=== PATIENT | female | born 1935 | race Caucasian/White ===

== ENCOUNTER 2016-05-17 17:18 | Inpatient (IN) ==
[2016-05-17] MEDS ORDERED: *HR* OxyCODONE Immed Rel 5 MG TABLET PO PRN (18:02)
--- NOTE | 2016-05-17 18:14 | Orthopedic History & Physical ---
Date of Encounter: 05/17/16 Time of Encounter: 18:04 History of Present Illness Chief complaint: Fall, Incisional Dehiscence HPI: Ms. Sheehan is a 80 year old female, presented to [facility] clinic with wound dehiscence, purulence and pain to her Right knee. She recently had a Right TKR 03/29/16 with . She had some early contact dermatitis, treated with Doxycycline for 7 days, and improvement of contact dermatitis. She was last seen 05/04/16 by in clinic, and was doing well with only a small slow healing proximal wound. She states she noticed more redness and wound opening last week. She went to urgent care in [facility] and was started on Bactrim DS BID. She had a mechanical fall on Tuesday, and she thinks this opened her incision even more. However, she is a poor historian and reported a fall as much as a month ago to the medical affairs leader. She states there has been more drainage and odor since her fall on Tuesday. She is able to walk with moderate pain, ROM is limited secondary to pain. She has not completed many PT sessions at this time. She was [facility], then d/c'ed home. She is alert and oriented, but is hearing impaired and seems to be slightly confused, her friend Ara with her states this is her usual state. She denies fever, N/V, or any additional issues. She has a history of coronary stent placement, Pacemaker - which was recently interrogated 02/2016 prior to TKR. She was scheduled for a Right ureteral stent placement with for due to blocked UPJ however, she did not have the surgery because she ate the day of surgery. Will obtain Cardiac consult, and nephrology consult. Past Med Surg Social Fam HX - Past Medical History Medical history: arthritis, COPD, coronary artery disease, diabetes, hyperlipidemia, hypertension, other Psychiatric history: no psych history - Social History Smoking Status: Former smoker Smokeless Tobacco Status: No Alcohol use: none Drug use: none - Family History Mother Living Status: Hx Family Cardiac Disorders: Yes Hx Family Endocrine Disorder: Yes Medications and Allergies Albuterol Sulfate [Proventil Hfa] 2 puff IH Q4H PRN 03/29/16 [History] Amlodipine [Norvasc] 5 mg PO DAILY 03/29/16 [History] Atorvastatin [Lipitor] 40 mg PO HS 03/29/16 [History] Budesonide/Formoterol 80/4.5 [Symbicort 80/4.5] 2 puff IH BIDR PRN 03/29/16 [ History] GlipiZIDE [Glucotrol] 5 mg PO DAILY 03/29/16 [History] Hydralazine HCl 50 mg PO BID 03/29/16 [History] Insulin Glargine,Hum.rec.anlog [Lantus Solostar] 22 unit SQ HS 03/29/16 [History ] Losartan Potassium [Cozaar] 100 mg PO DAILY 03/29/16 [History] Tiotropium [Spiriva] 18 mcg IH 0700 03/29/16 [History] Tramadol HCl [Ultram] 50 mg PO QID PRN 03/29/16 [History] Hydroxyzine HCl 25 mg PO Q8H PRN 05/11/16 [History] Meclizine HCl [Verticalm] 25 mg PO DAILY PRN 05/11/16 [History] Allergies vitamin E (d-alpha tocopherol) Adverse Reaction (Verified 05/11/16 14:32) Hives All Systems Reviewed: A 10-system review of systems was performed and is negative for pertinent findings except as documented above in the HPI. - Constitutional Constitutional: as per HPI, frequent falls, no fever(s), no headache(s), no weakness - Respiratory Respiratory: as per HPI, no cough - Musculoskeletal Musculoskeletal: abnormal gait, joint swelling, limited range of motion, muscle weakness Physical Exam - Constitutional Vitals: Pulse Resp BP Pulse Ox 68 18 170/77 97 05/17/16 17:57 05/17/16 17:57 05/17/16 17:57 05/17/16 17:57 - Knee right Appearance: effusion, other (erythema along incision with multiple areas of wound dehicence, obvious purulence from incision; odororous) Varus alignment in stance: No Valgus alignment in stance: No Tenderness with palpation knee: anterior, medial, lateral Pain: throughout ROM Gait: limping ROM: extension knee: Limited ROM: flexion knee: Limited Strength: extension knee: Limited Strength: flexion: Limited Results - Labs Labs: All other labs normal.
[2016-05-17 18:38] LABS: Basophils # 0.1 K/mcL (0.0-0.2); Basophils % 1.1 %; Eosinophils # 0.2 K/mcL (0.0-0.6); Eosinophils % 2.3 %; Hematocrit 35.4 % (35.3-44.9); Hemoglobin 11.2 g/dL (11.5-15.4); Immature Granulocytes % 0.9 % (0-4); Lymphocytes % 22.5 %; Mean Corpuscular HGB Conc 31.6 g/dL (31.6-35.5); Mean Corpuscular Hemoglobin 25.9 pg (28.0-33.3); Mean Corpuscular Volume 81.9 fL (83.0-100.0); Mean Platelet Volume 9.4 fL (9.4-12.4); Monocytes # 0.7 K/mcL (0.0-1.3); Monocytes % 7.7 %; Neutrophils # 5.9 K/mcL (1.6-8.9); Platelet Count 367 K/mcL (140-400); Red Blood Count 4.32 M/mcL (3.82-4.97); Red Cell Distribution Width 15.9 % (11.5-14.5); Segmented Neutrophils % 65.5 %
[2016-05-17 18:40] LABS: INR 1.3; Prothrombin Time 13.8 Seconds (9.4-12.1)
[2016-05-17 18:42] LABS: Activated Partial Thrombo Time 36.9 Seconds (26.0-36.0)
[2016-05-17 18:50] LABS: Albumin 3.1 g/dL (3.5-5.0); Albumin/Globulin Ratio 0.7 (1.1-2.2); Bilirubin,Total 0.2 mg/dL (0.2-1.2); Calcium 10.1 mg/dL (8.6-10.8); Globulin 4.2 g/dL (2.4-3.5); Potassium 4.7 mEq/L (3.5-4.5); Total Protein 7.3 g/dL (6.0-8.3)
[2016-05-17 19:14] LABS: Vancomycin,Peak < 0.4 mcg/mL (20-40); Vancomycin,Trough < 0.4 mcg/mL (10-20)
[2016-05-17] MEDS: Vancomycin 1,000 MG in D5% in Water 250 ML IVPB SCH (20:07)
[2016-05-17] MEDS: Ringers Solution, Lactated 500 ML IVC SCH (20:07)
[2016-05-17] MEDS ORDERED: hydrOXYzine pamoate 25 MG CAPSULE PO PRN (21:22)
[2016-05-17] MEDS: Insulin DETEMIR 100 UNIT/ML X5UNITS SQ SCH (22:47)
[2016-05-17] MEDS: hydrALAZINE 25 MG TABLET PO SCH (22:47)
[2016-05-17] MEDS: traMADol 50 MG TABLET PO PRN (23:19)
--- NOTE | 2016-05-18 06:18 | Orthopedics Progress Note ---
Date of Encounter: 05/18/16 Time of Encounter: 06:17 Subjective Interval history: Patient with infection of right knee. Openings and drainage. Plan for surgery tomorrow resection arthroplasty cement spacer. Possible 1 stage revision if infection is not intra-articular. Objective Vital signs: Vital Signs Temp Pulse Resp BP Pulse Ox 05/18/16 04:00 97.6 F 63 16 142/72 98 05/18/16 00:00 98.0 F 63 17 155/71 98 05/17/16 20:25 98.1 F 65 18 165/70 98 05/17/16 17:57 68 18 170/77 97 Intake and Output 05/17/16 05/17/16 05/18/16 15:59 23:59 07:59 Intake Total 400 / 400 Output Total 200 / 200 Balance 200 / 200 Intake: Oral 400 / 400 Output: Urine 200 / 200 Other: # Voids 1 Weight 77.2 kg Blood Glucose* 127 - Labs CBC & BMP: 05/17/16 18:23 05/17/16 18:23 Labs: Abnormal lab results Hgb 11.2 g/dL (11.5-15.4) L 05/17/16 18:23 MCV 81.9 fL (83.0-100.0) L 05/17/16 18:23 MCH 25.9 pg (28.0-33.3) L 05/17/16 18:23 RDW 15.9 % (11.5-14.5) H 05/17/16 18:23 ESR 88 mm/hr (0-15) H 05/17/16 18:23 PT 13.8 Seconds (9.4-12.1) H 05/17/16 18:23 APTT 36.9 Seconds (26.0-36.0) H 05/17/16 18:23 Potassium 4.7 mEq/L (3.5-4.5) H 05/17/16 18:23 Carbon Dioxide 18 mEq/L (19-29) L 05/17/16 18:23 BUN 36 mg/dL (7-20) H 05/17/16 18:23 Creatinine 1.27 mg/dL (0.57-1.11) H 05/17/16 18:23 Est GFR ( Amer) 49 (> 60) L 05/17/16 18:23 Est GFR (Non-Af Amer) 41 (> 60) L 05/17/16 18:23 BUN/Creatinine Ratio 28 (6-26) H 05/17/16 18:23 POC Glucose 127 (58-89) H 05/17/16 20:01 C-Reactive Protein 25 mg/L (Less than 5) H 05/17/16 18:23 Albumin 3.1 g/dL (3.5-5.0) L 05/17/16 18:23 Globulin 4.2 g/dL (2.4-3.5) H 05/17/16 18:23 Albumin/Globulin Ratio 0.7 (1.1-2.2) L 05/17/16 18:23 Vancomycin Peak < 0.4 mcg/mL (20-40) L 05/17/16 18:23 Vancomycin Trough < 0.4 mcg/mL (10-20) L 05/17/16 18:23 Consult Discharge Plan - Plan Referrals: Roberto Wharton MD [Primary Care Provider] -
[2016-05-18] MEDS: hydrALAZINE 25 MG TABLET PO SCH ×2 (08:56→21:21)
[2016-05-18] MEDS: amLODIPine 5 MG TABLET PO SCH (08:56)
[2016-05-18] MEDS: *HR* GlipiZIDE 5 MG TABLET PO SCH (08:57)
[2016-05-18] MEDS: traMADol 50 MG TABLET PO PRN ×2 (08:59→21:29)
--- NOTE | 2016-05-18 11:20 | Cardiology Consult Note ---
<Regino Horn R - Last Filed: 05/18/16 11:35> Date of Encounter: 05/18/16 Time of Encounter: 11:17 Assessment and Plan (1) Pre-operative cardiovascular examination Current Visit: Yes Status: Acute Pre-op cardiovascular risk stratification for resection arthroplasty cement spacer. Possible 1 stage revision if infection is not intra-articular. Negative stress test 02/2016. Echo 02/2016 with preserved EF. Pt denies any chest pain. Reports prior to last week she was able to climb stairs and ambulate slowly without difficulty or chest pain. Reports chronic dyspnea she relates to her COPD. Pt is acceptable intermediate risk from a cardiac standpoint to proceed with surgery. No further cardiac work-up is indicated. Cardiology is signing off. Reconsult PRN. (2) CAD (coronary artery disease) Current Visit: Yes Status: Chronic Hx of PCI approximately 10 years ago. Continue statin. Recommend ASA after surgery. 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 Negative stress test 02/2016. Qualifiers: Coronary Disease-Associated Artery/Lesion type: [place] artery [place] vs. transplanted heart: rosebud heart Associated angina: without angina Qualified Code(s): I25.10 - Atherosclerotic heart disease of rosebud coronary artery without angina pectoris (3) HTN (hypertension) Current Visit: Yes Status: Chronic Has been mildly elevated--possible secondary to pain. Adjust antihypertensives as necessary. Qualifiers: Hypertension type: essential hypertension Qualified Code(s): I10 - Essential (primary) hypertension (4) Pacemaker Current Visit: Yes Status: Chronic Last interrogated 02/2016--normal function with >5 years battery longevity. Discussion w patient/family: The assessment and plan as outlined above was discussed with the patient and/or family members who expressed understanding and agreement. All questions were answered. Thank you for involving us in the care of your patient. Please call with any questions. I will discuss all the above with Dr. Monteiro and make changes as necessary. History of Present Illness Consult date: 05/18/16 Requesting physician: Eber Manuel Consult reason: pre-op risk stratification Chief complaint: right knee pain History of present illness: Ms. Sheehan is a 80 year old female with PMH of HTN, DM, HLD, Diastolic CHF, CAD s/p PCI 10 years ago, s/p PPM for sinus node dysfunction, s/p right TKR 04/02 that presented to [facility] clinic with wound dehiscence, purulence and pain to her Right knee. She had a mechanical fall on Tuesday, and she thinks this opened her incision even more. However, she is a poor historian and reported a fall as much as a month ago to the medical research scientist. Pt denies any syncope, reports occasional dizziness/lightheadedness. She had a stress test and echo 2015 in [place]. Records reviewed--Stress test gated EF 65%, negative for ischemia. Echo EF 63%, mild valvular dysfunction, diastolic dysfunction. She denies any chest pain. She reports chronic dyspnea that she relates to COPD. She is not on home O2. Past Med Surg Social Fam HX - Past Medical History Medical history: arthritis, CHF, COPD, coronary artery disease, diabetes, hyperlipidemia, hypertension, other Psychiatric history: no psych history - Past Surgical History Surgical History: angioplasty/stent, knee replacement, pacemaker - Social History Smoking Status: Former smoker Smokeless Tobacco Status: No Alcohol use: none Drug use: none - Family History Mother Living Status: Hx Family Cardiac Disorders: Yes Hx Family Endocrine Disorder: Yes Medications and Allergies Albuterol Sulfate [Proventil Hfa] 2 puff IH Q4H PRN 03/29/16 [History] Amlodipine [Norvasc] 5 mg PO DAILY 03/29/16 [History] Atorvastatin [Lipitor] 40 mg PO HS 03/29/16 [History] Budesonide/Formoterol 80/4.5 [Symbicort 80/4.5] 2 puff IH BIDR PRN 03/29/16 [ History] GlipiZIDE [Glucotrol] 5 mg PO DAILY 03/29/16 [History] Hydralazine HCl 50 mg PO BID 03/29/16 [History] Insulin Glargine,Hum.rec.anlog [Lantus Solostar] 22 unit SQ HS 03/29/16 [History ] Losartan Potassium [Cozaar] 100 mg PO DAILY 03/29/16 [History] Tiotropium [Spiriva] 18 mcg IH 0700 03/29/16 [History] Tramadol HCl [Ultram] 50 mg PO QID PRN 03/29/16 [History] Hydroxyzine HCl 25 mg PO Q8H PRN 05/11/16 [History] Meclizine HCl [Verticalm] 25 mg PO DAILY PRN 05/11/16 [History] Tiotropium [Spiriva] IH DAILY 05/17/16 [History] Allergies vitamin E (d-alpha tocopherol) Adverse Reaction (Verified 05/11/16 14:32) Hives All Systems Review: A 10-system review of systems was performed and is negative for pertinent findings except as documented above in the HPI. - Constitutional Constitutional: frequent falls - Cardiovascular Cardiovascular: as per HPI, dyspnea on exertion, leg edema - Respiratory Respiratory: dyspnea - Musculoskeletal Musculoskeletal: arthralgias - Integumentary Integumentary: other (right knee wound) Physical Examination Vital Signs, Last 4 Hours Temp Pulse Resp BP Pulse Ox 05/18/16 10:50 98.1 F 63 18 136/62 96 Vital Signs Temp Pulse Resp BP Pulse Ox 05/18/16 10:50 98.1 F 63 18 136/62 96 05/18/16 06:17 98.5 F 69 18 153/71 96 05/18/16 04:00 97.6 F 63 16 142/72 98 05/18/16 00:00 98.0 F 63 17 155/71 98 05/17/16 20:25 98.1 F 65 18 165/70 98 05/17/16 17:57 68 18 170/77 97 Intake and Output 05/17/16 05/18/16 05/18/16 23:59 07:59 15:59 Intake Total 400 / 400 Output Total 200 / 200 Balance 200 / 200 Intake: Oral 400 / 400 Output: Urine 200 / 200 Other: # Voids 1 Weight 77.2 kg Blood Glucose* 127 54 85 General: Conversant, No Apparent Distress HEENT: Atraumatic, Normocephaly, Mucus Membranes Moist Neck: No JVD, Normal carotid pulses Cardiac: Reg Rate and Rhythm, Normal S1 and S2, No Murmur Lungs: Normal Breath Sounds, No Wheeze, Rales, Rhonchi Neuro: Alert and responsive, No focal deficits noted Abdomen: Soft, Non-Tender Skin: Other (right knee wound with drainage) Musculoskeletal: No Chest Wall Tenderness Extremities: Other (mild BLE edema, worse on right) Results 05/17/16 18:23 05/17/16 18:23 Lab Results 05/17/16 05/17/16 05/17/16 18:23 18:23 18:23 WBC 9.0 Hgb 11.2 L Hct 35.4 Plt Count 367 INR 1.3 APTT 36.9 H Sodium 136 Potassium 4.7 H Chloride 107 Carbon Dioxide 18 L BUN 36 H Creatinine 1.27 H Glucose 73 Calcium 10.1 Total Bilirubin 0.2 AST 16 ALT 12 Alkaline Phosphatase 89 Short CBC 05/17/16 Range/Units 18:23 WBC 9.0 (4.3-11.1) K/mcL Hgb 11.2 L (11.5-15.4) g/dL Hct 35.4 (35.3-44.9) % Plt Count 367 (140-400) K/mcL Neutrophils # 5.9 (1.6-8.9) K/mcL BMP 05/17/16 Range/Units 18:23 Sodium 136 (136-145) mEq/L Potassium 4.7 H (3.5-4.5) mEq/L Chloride 107 (98-109) mEq/L Carbon Dioxide 18 L (19-29) mEq/L BUN 36 H (7-20) mg/dL Creatinine 1.27 H (0.57-1.11) mg/dL Glucose 73 (70-99) mg/dL Calcium 10.1 (8.6-10.8) mg/dL Liver Function 05/17/16 Range/Units 18:23 Total Bilirubin 0.2 (0.2-1.2) mg/dL AST 16 (5-34) Units/L ALT 12 (0-55) Units/L Alkaline Phosphatase 89 (38-126) Units/L Albumin 3.1 L (3.5-5.0) g/dL Impressions Knee X-Ray 05/17/16 17:57 IMPRESSION: 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 D/ / Quintin Lock MD / Quintni Lock MD Interpreting Provider: Quintin Lock MD Active Medications Amlodipine Besylate (Norvasc) 5 mg PO DAILY TOBY PRN Reason: Protocol Stop: 11/17/16 09:01 Last Admin: 05/18/16 08:56 Dose: 5 mg Atorvastatin Calcium (Lipitor) 40 mg PO HS TOBY Stop: 11/16/16 21:31 Last Admin: 05/17/16 22:47 Dose: 40 mg Glipizide (Glucotrol) 5 mg PO 0800 [facility] Stop: 11/17/16 08:01 Last Admin: 05/18/16 08:57 Dose: 5 mg Hydralazine HCl (Hydralazine) 50 mg PO BID [facility] Stop: 11/16/16 21:31 Last Admin: 05/18/16 08:56 Dose: 50 mg Hydroxyzine Pamoate (Hydroxyzine Pamoate) 25 mg PO TID PRN PRN Reason: Itching Stop: 11/17/16 09:01 Vancomycin HCl 1,000 mg/ (Dextrose) 250 mls @ 167 mls/hr IVPB Q24H TOBY PRN Reason: Protocol Stop: 11/16/16 19:01 Last Admin: 05/17/16 20:07 Dose: 167 mls/hr Lactated Ringer's (Lactated Ringers) 500 mls @ 75 mls/hr IVC .Q6H40M [facility] Stop: 11/16/16 18:31 Last Admin: 05/17/16 20:07 Dose: 75 mls/hr Insulin Detemir (Levemir) 22 unit SQ HS [facility] Stop: 11/16/16 21:31 Last Admin: 05/17/16 22:47 Dose: 22 unit Losartan Potassium (Cozaar) 100 mg PO DAILY [facility] PRN Reason: Protocol Stop: 11/17/16 09:01 Last Admin: 05/18/16 08:56 Dose: 100 mg Meclizine HCl (Antivert) 25 mg PO DAILY PRN PRN Reason: DIZZINESS Stop: 11/17/16 09:01 Oxycodone HCl (Roxicodone) 5 mg PO Q6HR PRN PRN Reason: Pain Stop: 11/16/16 18:03 Tiotropium [place] (Spiriva) 18 mcg IH DAILYR [facility] PRN Reason: Protocol Stop: 11/17/16 10:01 Tramadol HCl (Ultram) 50 mg PO QID PRN PRN Reason: Pain Stop: 11/16/16 23:09 Last Admin: 05/18/16 08:59 Dose: 50 mg - Imaging and Cardiology Stress Test: report reviewed (02/2016 perfusion imaging negative for ischemia gated EF 65%.) Echo: report reviewed (02/2016 EF 63%, diastolic dysfunction, mild valvular dysfunction) - EKG Interpretation EKG results cardiology: personally reviewed (02/2016 paced), other (12 hour tele AVG HR 63, SR, no significant pauses or arrhythmias, intermittently paced) Consult Discharge Plan - Plan Referrals: Roberto Wharton MD [Primary Care Provider] - <Regis Monteiro - Last Filed: 05/18/16 11:46> Date of Encounter: 05/18/16 Assessment and Plan Discussion w patient/family: The assessment and plan as outlined above was discussed with the patient and/or family members who expressed understanding and agreement. All questions were answered. Thank you for involving us in the care of your patient. Please call with any questions. History of Present Illness History of present illness: Ms. Sheehan is a 80 year old female All Systems Review: A 10-system review of systems was performed and is negative for pertinent findings except as documented above in the HPI. Physical Examination Vital Signs, Last 4 Hours Temp Pulse Resp BP Pulse Ox 05/18/16 10:50 98.1 F 63 18 136/62 96 Results 05/17/16 18:23 05/17/16 18:23 Lab Results 05/17/16 05/17/16 05/17/16 18:23 18:23 18:23 WBC 9.0 Hgb 11.2 L Hct 35.4 Plt Count 367 INR 1.3 APTT 36.9 H Sodium 136 Potassium 4.7 H Chloride 107 Carbon Dioxide 18 L BUN 36 H Creatinine 1.27 H Glucose 73 Calcium 10.1 Total Bilirubin 0.2 AST 16 ALT 12 Alkaline Phosphatase 89 - Attending Attestation For this encounter, I have reviewed the HOME APPLIANCE TECHNICIAN or PA documentation, treatment plan, and medical decision making; and I have had face to face time with this patient. \\ Asked to see for per op clearance for knee surgery Hx of stent 10 years ago, also a dual chamber pacer PT denies any cp , sob, no pnd cough VSS JVD: 6 cm CHest: clear to auscultation , percussion CVS: RRR , no murmur , gallops or rubs EKG: no acute changes , reviewed by me Ok for surgery from a CV standpoint start ASA when feasible post op Will see as needed Thanks
[2016-05-18] MEDS: Tiotropium 18 MCG inhalation IH SCH (11:45)
[2016-05-18] MEDS ORDERED: Lidocaine -MPF 1% 5 ML AMPUL INFILT ONE (15:59)
--- NOTE | 2016-05-18 18:18 | Anesthesia Evaluation PreOp ---
Date of Encounter: 05/18/16 Time of Encounter: 18:00 - Past History Planned Operation: Rt Revision TKA Cardiac History: [place] (PCI 10 years ago), HTN, Hyperlipidemia, Arrhythmia, Pacemaker/ICD (Pacemaker last interrogated ) Pulmonary History: COPD SENIOR PROJECT ACCOUNTANT History: Denies Any Significant HX Other Medical History: Renal (CKD), Diabetes Type II Anesthesia History: No Prior Anesthetic Complications (Rt TKA under GA and Fem Block) Alcohol Use: none Drug use: none Medications and Allergies Albuterol Sulfate [Proventil Hfa] 2 puff IH Q4H PRN 03/29/16 [History] Amlodipine [Norvasc] 5 mg PO DAILY 03/29/16 [History] Atorvastatin [Lipitor] 40 mg PO HS 03/29/16 [History] Budesonide/Formoterol 80/4.5 [Symbicort 80/4.5] 2 puff IH BIDR PRN 03/29/16 [ History] GlipiZIDE [Glucotrol] 5 mg PO DAILY 03/29/16 [History] Hydralazine HCl 50 mg PO BID 03/29/16 [History] Insulin Glargine,Hum.rec.anlog [Lantus Solostar] 22 unit SQ HS 03/29/16 [History ] Losartan Potassium [Cozaar] 100 mg PO DAILY 03/29/16 [History] Tramadol HCl [Ultram] 50 mg PO QID PRN 03/29/16 [History] Hydroxyzine HCl 25 mg PO Q8H PRN 05/11/16 [History] Meclizine HCl [Verticalm] 25 mg PO DAILY PRN 05/11/16 [History] Tiotropium [Spiriva] 1 cap IH DAILY 05/17/16 [History] Cholecalciferol (Vitamin D3) [Vitamin D] 2,000 unit PO DAILY 05/18/16 [History] Desoximetasone [Topicort] 1 appl TP BID 05/18/16 [History] Diclofenac Sodium [Voltaren] 1 appl TP TID 05/18/16 [History] Oxycodone HCl [Oxaydo] 5 mg PO Q6H PRN 05/18/16 [History] Allergies vitamin E (d-alpha tocopherol) Adverse Reaction (Verified 05/11/16 14:32) Hives - Meds/Allergy Pre-op Review Medications Reviewed: Yes Allergies Reviewed: Yes Beta Blockers on Current Med List: No Anesthesia Results - Labs 05/17/16 18:23 05/17/16 18:23 Laboratory Tests 05/17/16 05/17/16 18:23 18:23 Hgb 11.2 L Hct 35.4 Plt Count 367 Sodium 136 Potassium 4.7 H BUN 36 H Creatinine 1.27 H - Imaging EKG: report reviewed (Electronic Atrial Pacemaker) Additional studies: Negative Stress Test ECHO preserved EF per Cardiology consult Anesthesia Exam O2 Sat Height 1.5 m Weight 77.2 kg O2 Sat by Pulse Oximetry 95 O2 Sat by Pulse Oximetry 96 O2 Sat by Pulse Oximetry 96 O2 Sat by Pulse Oximetry 98 O2 Sat by Pulse Oximetry 98 O2 Sat by Pulse Oximetry 98 Vital Signs Pulse Resp BP Pulse Ox 68 18 170/77 97 05/17/16 17:57 05/17/16 17:57 05/17/16 17:57 05/17/16 17:57 Height: 4'11 Weight: 170 lbs Pain Scale: 2 - HEENT Pupil (Motor): Pupils equal, EOMI Mallampati: III Teeth: Edentulous Oral Opening: Less than or equal to 3 - SENIOR PROJECT ACCOUNTANT LOC: Oriented SENIOR PROJECT ACCOUNTANT Motor: Normal RUE, Normal LUE, Normal RLE, Normal LLE, Normal Face SENIOR PROJECT ACCOUNTANT Sensory: Normal: RUE, LUE, RLE, LLE, Face - Cardiac Rhythm: Regular Murmur: None JVD: No Carotid Bruit: No - Pulmonary Breath Sounds: bilateral Clear Respiratory Effort: Symmetrical Anesthesia Assess/Plan ASA Score: 4 (HTN, CAD, Arrhythmia with Pacemaker, COPD, DM) Modified [place] Scale for Level of Consciousness: Cooperative, oriented, and tranquil Anesthetic Plan: General, Regional Monitoring Plan: Standard Monitors Recovery Plan: PACU (Discussed GA and RA, agrees to proceed)
[2016-05-18] MEDS: Vancomycin 1,000 MG in D5% in Water 250 ML IVPB SCH (18:43)
[2016-05-18] MEDS: Insulin DETEMIR 100 UNIT/ML X5UNITS SQ SCH (21:21)
[2016-05-18] MEDS: Zinc Sulfate 220 MG CAPSULE PO SCH (21:21)
[2016-05-18] MEDS: Ascorbic Acid 500 MG TABLET PO SCH (21:21)
[2016-05-19] MEDS: Ringers Solution, Lactated 500 ML IVC SCH (04:51)
--- NOTE | 2016-05-19 08:42 | Orthopedics Progress Note ---
Date of Encounter: 05/19/16 Time of Encounter: 08:41 Subjective Interval history: Seen this morning plastic surgery today discussed risks benefits as well as recovery discussed as well as a review of planned procedure. All questions answered. Objective Vital signs: Vital Signs Temp Pulse Resp BP Pulse Ox 05/19/16 06:47 98.7 F 68 16 134/68 94 L 05/19/16 04:00 98.5 F 60 17 136/71 92 L 05/19/16 00:00 98.7 F 64 16 130/74 92 L 05/18/16 20:00 98.6 F 64 18 130/71 93 L 05/18/16 14:54 98.2 F 60 18 132/51 95 05/18/16 10:50 98.1 F 63 18 136/62 96 Intake and Output 05/18/16 05/19/16 05/19/16 23:59 07:59 15:59 Intake Total 550 / 550 0 / 0 Output Total 680 / 680 1075 / 1075 Balance -130 / -130 -1075 / -1075 Intake: IV Fluids 250 / 250 Vancocin 1,000 MG In 250 / 250 Dextrose 5% 250 ML @ 167 mls/hr IVPB Q24H [facility] Rx#: [id number] Oral 300 / 300 0 / 0 Output: Urine 680 / 680 1075 / 1075 Other: Stool Size Moderate Stool Consistency formed Stool Characteristics Normal for Patient Stool Color Brown # Voids 1 # Bowel Movements 1 Blood Glucose* 231 88 - Labs CBC & BMP: 05/17/16 18:23 05/17/16 18:23 Labs: Abnormal lab results Hgb 11.2 g/dL (11.5-15.4) L 05/17/16 18:23 MCV 81.9 fL (83.0-100.0) L 05/17/16 18:23 MCH 25.9 pg (28.0-33.3) L 05/17/16 18:23 RDW 15.9 % (11.5-14.5) H 05/17/16 18:23 ESR 88 mm/hr (0-15) H 05/17/16 18:23 PT 13.8 Seconds (9.4-12.1) H 05/17/16 18:23 APTT 36.9 Seconds (26.0-36.0) H 05/17/16 18:23 Potassium 4.7 mEq/L (3.5-4.5) H 05/17/16 18:23 Carbon Dioxide 18 mEq/L (19-29) L 05/17/16 18:23 BUN 36 mg/dL (7-20) H 05/17/16 18:23 Creatinine 1.27 mg/dL (0.57-1.11) H 05/17/16 18:23 Est GFR ( Amer) 49 (> 60) L 05/17/16 18:23 Est GFR (Non-Af Amer) 41 (> 60) L 05/17/16 18:23 BUN/Creatinine Ratio 28 (6-26) H 05/17/16 18:23 POC Glucose 231 (58-89) H 05/18/16 19:50 C-Reactive Protein 25 mg/L (Less than 5) H 05/17/16 18:23 Albumin 3.1 g/dL (3.5-5.0) L 05/17/16 18:23 Globulin 4.2 g/dL (2.4-3.5) H 05/17/16 18:23 Albumin/Globulin Ratio 0.7 (1.1-2.2) L 05/17/16 18:23 Vancomycin Peak < 0.4 mcg/mL (20-40) L 05/17/16 18:23 Vancomycin Trough < 0.4 mcg/mL (10-20) L 05/17/16 18:23 Consult Discharge Plan - Plan Referrals: Roberto Wharton MD [Primary Care Provider] -
[2016-05-19] MEDS ORDERED: Multivit/Ca/Min/Fe/FA 1 TAB TABLET PO SCH (09:00)
[2016-05-19] MEDS ORDERED: Aminoglycoside Consult 1 EACH MC ONE (09:18)
[2016-05-19] MEDS: *HR* GlipiZIDE 5 MG TABLET PO SCH (09:19)
[2016-05-19] MEDS: hydrALAZINE 25 MG TABLET PO SCH ×2 (09:24→20:16)
[2016-05-19] MEDS: amLODIPine 5 MG TABLET PO SCH (09:24)
[2016-05-19] MEDS: Zinc Sulfate 220 MG CAPSULE PO SCH ×2 (09:24→20:16)
[2016-05-19] MEDS: Ascorbic Acid 500 MG TABLET PO SCH ×2 (09:25→20:16)
[2016-05-19] MEDS: traMADol 50 MG TABLET PO PRN (09:30)
[2016-05-19] MEDS: Tiotropium 18 MCG inhalation IH SCH (10:56)
--- NOTE | 2016-05-19 11:30 | Nephrology Consult Note ---
<Swetha Bowen - Last Filed: 05/19/16 15:35> Date of Encounter: 05/19/16 Time of Encounter: 11:30 Assessment and Plan (1) Chronic kidney disease (CKD), stage III (moderate) Status: Chronic Patient with a history of chronic kidney disease stage III and follows with Dr. Pena in the outpatient setting. Serum creatinine on admission very close to baseline at 1.27, now improved to 0.98. Uric acid, CK, urinalysis, urine creatinine, and urine sodium pending. Continue to renally dose vancomycin per pharmacy and avoid other nephrotoxic agents if possible. Patient appears relatively euvolemic at this time, monitor volume status after surgery. (2) Joint infection Status: Acute History of Present Illness - Reason for Consult Consult date: 05/19/16 Chronic Kidney Disease Requesting physician: Lilliam Li - Chief Complaint CKD - History of Present Illness Ms. 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 Patient follows with Dr. Pena for stage III chronic kidney disease and nephrology was consulted for inpatient management. On admission patient's serum creatinine was 1.27 with a GFR of 41. Currently, serum creatinine 0.98. Patient had a mechanical fall on Tuesday which may have opened her right knee wound. Patient is to be taken to the OR today with orthopedic surgery for a resection and possible one stage revision. Patient states that she is feeling well today. She has no current complaints or concerns. She states she was scheduled to have a stent placed with Dr. Alarcon several weeks ago but this was rescheduled due to her eating prior to her procedure. Past Med Surg Social Fam HX - Past Medical History Medical history: arthritis, CHF, COPD, coronary artery disease, diabetes, hyperlipidemia, hypertension, renal disease Psychiatric history: no psych history - Past Surgical History Surgical History: angioplasty/stent, knee replacement, pacemaker - Social History Smoking Status: Former smoker Smokeless Tobacco Status: No Alcohol use: none Drug use: none - Family History Mother Living Status: Hx Family Cardiac Disorders: Yes Hx Family Endocrine Disorder: Yes Medications and Allergies Albuterol Sulfate [Proventil Hfa] 2 puff IH Q4H PRN 03/29/16 [History] Amlodipine [Norvasc] 5 mg PO DAILY 03/29/16 [History] Atorvastatin [Lipitor] 40 mg PO HS 03/29/16 [History] Budesonide/Formoterol 80/4.5 [Symbicort 80/4.5] 2 puff IH BIDR PRN 03/29/16 [ History] GlipiZIDE [Glucotrol] 5 mg PO DAILY 03/29/16 [History] Hydralazine HCl 50 mg PO BID 03/29/16 [History] Insulin Glargine,Hum.rec.anlog [Lantus Solostar] 22 unit SQ HS 03/29/16 [History ] Losartan Potassium [Cozaar] 100 mg PO DAILY 03/29/16 [History] Tramadol HCl [Ultram] 50 mg PO QID PRN 03/29/16 [History] Hydroxyzine HCl 25 mg PO Q8H PRN 05/11/16 [History] Meclizine HCl [Verticalm] 25 mg PO DAILY PRN 05/11/16 [History] Tiotropium [Spiriva] 1 cap IH DAILY 05/17/16 [History] Cholecalciferol (Vitamin D3) [Vitamin D] 2,000 unit PO DAILY 05/18/16 [History] Desoximetasone [Topicort] 1 appl TP BID 05/18/16 [History] Diclofenac Sodium [Voltaren] 1 appl TP TID 05/18/16 [History] CeFAZolin [Ancef] 2,000 mg IVPB Q8H 42 Days 05/21/16 [Rx] Oxycodone HCl [Oxaydo] 5 mg PO Q6H PRN #30 tablet.orl 05/21/16 [Rx] Tramadol HCl [Ultram] 50 mg PO QID PRN #20 tab 05/21/16 [Rx] Allergies vitamin E (d-alpha tocopherol) Adverse Reaction (Verified 05/11/16 14:32) Hives Review of Systems All Systems: reviewed and no additional remarkable complaints except as stated Exam - Vital Signs Vital signs: Initial Vital Signs Pulse Resp BP Pulse Ox 68 18 170/77 97 05/17/16 17:57 05/17/16 17:57 05/17/16 17:57 05/17/16 17:57 Vital Signs - Last 8 Hours Temp Pulse Resp BP Pulse Ox 05/19/16 10:57 97.9 F 65 16 125/69 97 05/19/16 06:47 98.7 F 68 16 134/68 94 L 05/19/16 04:00 98.5 F 60 17 136/71 92 L Intake and Output 05/18/16 05/19/16 05/19/16 23:59 07:59 15:59 Intake Total 550 / 550 0 / 0 Output Total 680 / 680 1075 / 1075 Balance -130 / -130 -1075 / -1075 Intake: IV Fluids 250 / 250 Vancocin 1,000 MG In 250 / 250 Dextrose 5% 250 ML @ 167 mls/hr IVPB Q24H [facility] Rx#: [id number] Oral 300 / 300 0 / 0 Output: Urine 680 / 680 1075 / 1075 Other: Stool Size Moderate Stool Consistency formed Stool Characteristics Normal for Patient Stool Color Brown # Voids 1 # Bowel Movements 1 Blood Glucose* 231 88 100 - General Appearance Exam: General: Patient is alert and in no acute distress HEENT: Normocephalic atraumatic, pupils are equal round and reactive to light and accommodation, tympanic membrane is intact, nares is patent, mucous membranes moist, throat is not injected, no JVD, trachea is midline Cardiovascular: Regular rate and rhythm without murmur Respiratory: Lungs are clear to auscultation bilaterally, no wheezing, rhonchi, rales Abdomen: Soft, nontender, nondistended, positive bowel sounds in all 4 quadrants Extremities: Warm, dry, trace lower extremity edema, right knee with erythema along the incision/wound dehiscence Neuro: A&Ox3, speech is appropriate, cranial nerves II through XII are normal as tested Results - Lab Results 05/19/16 11:26 05/19/16 11:26 Most recent lab results Calcium 10.1 mg/dL (8.6-10.8) 05/17/16 18:23 Consult Discharge Plan - Plan Instructions: Cefazolin (Injection), Total Knee Replacement, Terrazzo Journeyman ( GEN) Referrals: Eber Manuel MD [Partnered Physician] - 06/16/16 5:10 pm Lilliam Li PAC [Physician Ore Puncher] - 05/28/16 11:45 am New Pena DO [Partnered Physician] - 10/01/16 1:45 pm Roberto Wharton MD [Primary Care Provider] - 08/02/16 10:30 am Sae Alarcon MD [Partnered Physician] - 05/28/16 1:45 pm Prescriptions: CeFAZolin [Ancef] 2,000 mg IVPB Q8H 42 Days Oxycodone HCl [Oxaydo] 5 mg PO Q6H PRN #30 tablet.orl PRN Reason: Pain Tramadol HCl [Ultram] 50 mg PO QID PRN #20 tab PRN Reason: Pain <Thalia Staples - Last Filed: 05/31/16 00:10> Exam - Vital Signs Vital signs: Initial Vital Signs Pulse Resp BP Pulse Ox 68 18 170/77 97 05/17/16 17:57 05/17/16 17:57 05/17/16 17:57 05/17/16 17:57 Results - Lab Results 05/21/16 07:00 05/19/16 11:26 Most recent lab results Calcium 9.7 mg/dL (8.6-10.8) 05/19/16 11:26 Urine Creatinine 46 mg/dL 05/20/16 02:18 Urine Sodium 89.0 mEq/L 05/20/16 02:18 - Attending Attestation I examined this patient and my medical decision-making was reviewed with the LAMP WIRER/PA/Advanced Practice Nurse/Resident Physician. I agree with the documented findings, disposition and treatment plan as described except to the extent set forth below. Pt seen and examined admitted by the ortho team for surgical revision of R knee due to infection requiring iv abx. Renal consulted to help in management of her established stage 3 CKD given risk for MARYBETH. Will initiate brief workup and follow along.
[2016-05-19 11:38] LABS: Basophils # 0.1 K/mcL (0.0-0.2); Basophils % 0.7 %; Eosinophils # 0.3 K/mcL (0.0-0.6); Eosinophils % 3.6 %; Hematocrit 33.6 % (35.3-44.9); Hemoglobin 10.7 g/dL (11.5-15.4); Lymphocytes # 2.4 K/mcL (0.6-4.6); Mean Corpuscular HGB Conc 31.8 g/dL (31.6-35.5); Mean Corpuscular Volume 81.8 fL (83.0-100.0); Monocytes # 0.7 K/mcL (0.0-1.3); Monocytes % 7.6 %; Neutrophils # 5.7 K/mcL (1.6-8.9); Platelet Count 335 K/mcL (140-400); Red Blood Count 4.11 M/mcL (3.82-4.97); Red Cell Distribution Width 15.9 % (11.5-14.5); Segmented Neutrophils % 61.1 %
[2016-05-19 11:52] LABS: BUN/Creatinine Ratio 29 (6-26); Blood Urea Nitrogen 28 mg/dL (7-20); Calcium 9.7 mg/dL (8.6-10.8); Carbon Dioxide 19 mEq/L (19-29); Chloride 108 mEq/L (98-109); Creatine Kinase 20 Units/L (29-168); Glucose 96 mg/dL (70-99); Osmolality,Calculated 289 (280-300); Potassium 4.5 mEq/L (3.5-4.5); Sodium 137 mEq/L (136-145); Uric Acid 5.4 mg/dL (2.6-6.0); eGFR For African Americans > 60 (> 60); eGFR For Non-African Americans 55 (> 60)
[2016-05-19] MEDS ORDERED: *HR* FentaNYL (PF) 100 MCG/2 ML VIAL ONE ×2 (13:32→14:41)
[2016-05-19] MEDS ORDERED: *HR* Midazolam HCl 2 MG/2 ML VIAL ONE (13:32)
[2016-05-19] MEDS ORDERED: Bupivacaine/Clonidine Syringe 1 EACH SYRINGE ONE (13:33)
--- NOTE | 2016-05-19 13:50 | Anesthesia Procedures ---
Date of Encounter: 05/19/16 Time of Encounter: 13:48 Procedures: Anesthesia - Nerve Block Procedure Date: 05/19/16 Time: 13:49 Allergies/Adv Reactions: Vit E Pre-op Diagnosis: r knee pain Surgical Procedure: r tka revision Checklist: Correct Patient Identifier, Correct procedure, History checked Correct side: Right Blood Thinner: No Monitor Applied: EKG, BP, Pulse Oximetry Supplemental Oxygen via Nasal Cannula (L/min): 2 Sedation: Versed (mg): 1 Indication: Post Op Analgesia (request per dr lerner) Pre-op Neuro Deficits: No Block Type: Femoral Catheter placed: No Sterile Technique: Yes Ultrasound used: Yes Anatomy identified: Yes Visual spread of Local: Yes Neuro Stimulation: No Blood on Needle Aspiration: No Smooth Injection of Local: Yes Pain with Injection of Local: No Prep: Chlorhexadine Needle: 22 x 50 mm Stimuplex Local: 0.25% Bupivicaine w/Clonidine 20 mcg/cc Volume (cc): 40 Number of Attempts: 1 Complications: None/effective block Vitals: see rn note for details
[2016-05-19] MEDS ORDERED: Lidocaine -MPF 2% 2 ML VIAL ONE (13:59)
[2016-05-19] MEDS ORDERED: *HR* Etomidate 40 MG/20 ML VIAL IVP ONE (13:59)
[2016-05-19] MEDS ORDERED: Ondansetron 4 MG/2 ML VIAL ONE (14:25)
[2016-05-19] MEDS ORDERED: Dexamethasone 4 MG/ML VIAL ONE (14:25)
[2016-05-19] MEDS ORDERED: *HR* Propofol 200 MG/20 ML VIAL IVP ONE (14:34)
[2016-05-19] MEDS ORDERED: Naloxone 0.4 MG/ML INJ IVP PRN ×2 (14:58→16:55)
[2016-05-19] MEDS ORDERED: Ondansetron 4 MG/2 ML VIAL IVP PRN ×2 (14:58→16:55)
--- NOTE | 2016-05-19 15:21 | Orthopedic Operative Note ---
Date of procedure: 05/19/16 Pre-op diagnosis: Infected right total knee Post-op diagnosis: same Procedure: Procedure: 1 stage right revision total knee Estimated blood loss: 1000 mL Hardware: Arthrex 3 femur, 2 tibia, 20 PS Pallavi 34 patella. Exam Under anesthesia: H in with multiple areas of drainage from incisionsignificant erythema around the knee. Procedural Notes: Gross pus in the subcutaneous tissue, no obvious intra- articular purulent material. Concern for communication in the area of extensor mechanism. Operative procedure: The patient was brought to the operating room and placed on the operating room table. After general anesthesia was administered the operative knee was prepped and draped in sterile surgical fashion. The patient received IV antibiotics prior to skin incision. An elliptical incision was made all around the previous incision encompassing the open areas. Incision was made through the skin and subcutaneous tissue hemostasis was obtained with cautery was purulent material in the subcutaneous tissue and extensive debridement and irrigation was performed at this time. There is a small communication between the subcutaneous tissue and intra-articular space. A medial arthrotomy was performed no gross purulent material was identified intra-articularly. Cultures were obtained at this time. The knee was brought into flexion the poly-was removed. The interface between the patient's femoral component and distal femur were disrupted with a osteotome and oscillating saw. Femoral component was removed with some central bone loss of the lateral condyle.. Attention was then turned to the tibial component. The same technique was used to remove the tibial component by disrupting the interface between the patient's tibial component and the patients proximal tibia. The tibial component was loose, was removed without significant bone loss. The patella was transected at the level between the component and the patella, it was sized to 30 for the guide was seated lug holes are drilled. The knee sat for 2 minutes with a Betadine saline solution and was irrigated out with copious amounts of normal saline. An extensive debridement was performed. Trials with the previous size were used except utilizing a 20 PS Pallavi. Trials were removed tibia cemented first followed by the femur. The #20 PS Pallavi was seated and secured the patella was cemented and held in place with patellar holding clamp. The knee sat in extension while the cement hardened. The knee sat again for 2 minutes with a Betadine saline solution. It was irrigated out with 2 L of pulse irrigation. After the cement hardened the knee was irrigated out again. The extensor mechanism was closed with a running #2 PDS suture. The deep tissue was irrigated and closed deep with #1 PDS suture superficially with 0 PDS suture. The skin was closed with skin lovely. The patient was placed in a sterile dressing and postoperative brace. They were extubated and transferred to recovery room in stable condition. Anesthesia: CONNIE Surgeon: Eber Manuel Condition: stable Disposition: PACU
[2016-05-19] MEDS: *HR* HYDROmorphone (PF) 1 MG/ML SYRINGE IVP PRN ×4 (15:32→16:04)
[2016-05-19 15:47] LABS: Hematocrit 30.1 % (35.3-44.9); Hemoglobin 9.5 g/dL (11.5-15.4)
--- NOTE | 2016-05-19 16:20 | Anesthesia Evaluation Post Op ---
Date of Encounter: 05/19/16 Time of Encounter: 16:20 - Vital Signs Vital Signs: Vital Signs/O2 Sat/Glucose, Most Current Temp Pulse Resp BP Pulse Ox 05/19/16 16:17 97.9 F 69 16 143/53 98 05/19/16 16:07 67 18 155/53 96 05/19/16 15:57 97.7 F 69 18 155/58 97 05/19/16 15:47 73 20 157/56 94 L 05/19/16 15:37 73 20 153/47 96 05/19/16 15:27 97.8 F 76 20 174/56 97 05/19/16 14:06 60 16 139/57 98 05/19/16 13:55 60 18 137/56 97 05/19/16 13:40 65 18 147/61 96 - Lungs Lungs: Clear Ascult./Percussion - Airway Airway: Non-obstructed - Cardiovascular Regular Rate - Mental Status Mental Status: Alert & Oriented, Answers Appropriately - Pain Pain Scale: 4 - Nausea Vomiting Nausea Vomiting: Not Present - Hydration Hydration: NPO - Discharge PostOp Status: Transfer Patient to floor
[2016-05-19] MEDS ORDERED: MOM Conc 10 ML UD.LIQ PO PRN (16:55)
[2016-05-19] MEDS ORDERED: Temazepam 15 MG CAPSULE PO PRN (16:55)
[2016-05-19] MEDS ORDERED: Ringers Solution, Lactated 1,000 ML IVC SCH (16:55)
[2016-05-19] MEDS ORDERED: *HR* HYDROmorphone (PF) 1 MG/ML SYRINGE IVP PRN (16:55)
[2016-05-19] MEDS ORDERED: hydrOXYzine pamoate 25 MG CAPSULE PO PRN (16:55)
[2016-05-19] MEDS ORDERED: Sennosides 8.6 MG TABLET PO PRN (16:55)
[2016-05-19] MEDS ORDERED: Ringers Solution, Lactated 500 ML IVC SCH (16:55)
[2016-05-19] MEDS ORDERED: *HR* OxyCODONE Immed Rel 5 MG TABLET PO PRN ×2 (16:55)
[2016-05-19] MEDS ORDERED: Albuterol Neb 1.25 MG/3 ML VIAL IH ONE (16:55)
[2016-05-19] MEDS: ceFAZolin 2,000 MG in D5% in Water 100 ML IVPB SCH (18:21)
[2016-05-19] MEDS: Insulin DETEMIR 100 UNIT/ML X5UNITS SQ SCH (20:17)
[2016-05-20] MEDS: ceFAZolin 2,000 MG in D5% in Water 100 ML IVPB SCH ×3 (01:45→17:13)
[2016-05-20 02:40] LABS: Bilirubin,Urine Negative (Negative); Blood,Urine Negative (Negative); Clarity,Urine Clear (Clear); Color,Urine Yellow (Yellow); Glucose,Urine (UA) 100 mg/dL (Normal); Ketones,Urine Negative (Negative); Leukocyte Esterase,Urine Negative (Negative); Nitrite,Urine Negative (Negative); PH,Urine 5.5 pH Units (5.0-8.0); Protein,Urine Negative (Neg-Trace); Specific Gravity,Urine 1.014 (1.010-1.025); Urobilinogen,Urine Normal (Normal)
--- NOTE | 2016-05-20 06:23 | Orthopedics Progress Note ---
Date of Encounter: 05/20/16 Time of Encounter: 06:23 Subjective Interval history: Patient was seen this morning doing well without complaints. Afebrile vital signs stable. Operative extremity: Neurovascularly intact Dressing clean dry and intact Calves nontender Assessment and plan: Continue with postoperative care Hematocrit 30 plan for discharge tomorrow Ancef 2 g every 86 weeks no bend of knee for 6 weeks. Objective Vital signs: Vital Signs Temp Pulse Resp BP Pulse Ox 05/20/16 05:01 98.2 F 66 17 122/56 97 05/20/16 00:00 98.1 F 64 18 136/61 95 05/19/16 19:47 98.0 F 68 12 151/59 98 05/19/16 18:26 97.2 F L 77 16 124/51 93 L 05/19/16 17:50 97.3 F L 75 18 131/54 94 L 05/19/16 17:17 97.6 F 81 16 121/57 96 05/19/16 16:40 97.6 F 69 16 140/52 98 05/19/16 16:17 97.9 F 69 16 143/53 98 05/19/16 16:07 67 18 155/53 96 05/19/16 15:57 97.7 F 69 18 155/58 97 05/19/16 15:47 73 20 157/56 94 L 05/19/16 15:37 73 20 153/47 96 05/19/16 15:27 97.8 F 76 20 174/56 97 05/19/16 14:06 60 16 139/57 98 05/19/16 13:55 60 18 137/56 97 05/19/16 13:40 65 18 147/61 96 05/19/16 10:57 97.9 F 65 16 125/69 97 05/19/16 06:47 98.7 F 68 16 134/68 94 L Intake and Output 05/19/16 05/19/16 05/20/16 15:59 23:59 07:59 Intake Total 500 / 500 Output Total 1500 / 1500 325 / 325 400 / 400 Balance -1500 / -1500 175 / 175 -400 / -400 Intake: IV Fluids 100 / 100 Ancef 2,000 MG In 100 / 100 Dextrose 5% 100 ML @ 200 mls/hr IVPB Q8HR PENDING SALE TO [facility] Rx#: [id number] Oral 400 / 400 Output: Urine 500 / 500 325 / 325 400 / 400 Estimated Blood Loss 1000 / 1000 Other: # Voids 2 1 Blood Glucose* 105 368 - Labs CBC & BMP: 05/19/16 15:41 05/19/16 11:26 Labs: Abnormal lab results Hgb 9.5 g/dL (11.5-15.4) L 05/19/16 15:41 Hct 30.1 % (35.3-44.9) L 05/19/16 15:41 MCV 81.8 fL (83.0-100.0) L 05/19/16 11:26 MCH 26.0 pg (28.0-33.3) L 05/19/16 11:26 RDW 15.9 % (11.5-14.5) H 05/19/16 11:26 MPV 9.0 fL (9.4-12.4) L 05/19/16 11:26 ESR 88 mm/hr (0-15) H 05/17/16 18:23 PT 13.8 Seconds (9.4-12.1) H 05/17/16 18:23 APTT 36.9 Seconds (26.0-36.0) H 05/17/16 18:23 BUN 28 mg/dL (7-20) H 05/19/16 11:26 Est GFR (Non-Af Amer) 55 (> 60) L 05/19/16 11:26 BUN/Creatinine Ratio 29 (6-26) H 05/19/16 11:26 POC Glucose 368 (58-89) H 05/19/16 19:35 Creatine Kinase 20 Units/L (29-168) L 05/19/16 11:26 C-Reactive Protein 25 mg/L (Less than 5) H 05/17/16 18:23 Albumin 3.1 g/dL (3.5-5.0) L 05/17/16 18:23 Globulin 4.2 g/dL (2.4-3.5) H 05/17/16 18:23 Albumin/Globulin Ratio 0.7 (1.1-2.2) L 05/17/16 18:23 Urine Glucose (UA) 100 mg/dL (Normal) H 05/20/16 02:18 Vancomycin Peak < 0.4 mcg/mL (20-40) L 05/17/16 18:23 Vancomycin Trough < 0.4 mcg/mL (10-20) L 05/17/16 18:23 - VTE Documentation of Mechanical Device: Venous foot pump, device Consult Discharge Plan - Plan Referrals: Eber Manuel MD [Partnered Physician] - 06/16/16 5:10 pm Lilliam Li, PAC [Physician Provider Education Specialist] - 05/28/16 11:45 am New Pena DO [Partnered Physician] - 10/01/16 1:45 pm Roberto Wharton MD [Primary Care Provider] - 08/02/16 10:30 am Sae Alarcon MD [Partnered Physician] - 05/28/16 1:45 pm
[2016-05-20 06:29] LABS: Hematocrit 25.9 % (35.3-44.9); Hemoglobin 8.2 g/dL (11.5-15.4)
[2016-05-20] MEDS: traMADol 50 MG TABLET PO PRN ×3 (06:58→23:29)
[2016-05-20] MEDS: *HR* GlipiZIDE 5 MG TABLET PO SCH (08:24)
[2016-05-20] MEDS: Zinc Sulfate 220 MG CAPSULE PO SCH ×2 (08:25→21:30)
[2016-05-20] MEDS: Multivit/Ca/Min/Fe/FA 1 TAB TABLET PO SCH (08:25)
[2016-05-20] MEDS: amLODIPine 5 MG TABLET PO SCH ×2 (08:27→08:28)
[2016-05-20] MEDS: hydrALAZINE 25 MG TABLET PO SCH ×2 (08:27→21:30)
[2016-05-20] MEDS: Ascorbic Acid 500 MG TABLET PO SCH ×2 (08:28→21:30)
[2016-05-20] MEDS ORDERED: 0.9 % Sodium Chloride 250 ML ONE ×2 (11:10→14:27)
[2016-05-20] MEDS: Tiotropium 18 MCG inhalation IH SCH (11:42)
[2016-05-20] MEDS: Insulin DETEMIR 100 UNIT/ML X5UNITS SQ SCH (22:31)
[2016-05-21] MEDS: ceFAZolin 2,000 MG in D5% in Water 100 ML IVPB SCH ×3 (00:37→16:57)
[2016-05-21] MEDS: traMADol 50 MG TABLET PO PRN ×3 (06:18→19:38)
--- NOTE | 2016-05-21 06:39 | Discharge Summary ---
Date of Encounter: 05/21/16 Time of Encounter: 06:36 - Discharge Diagnosis (1) Joint infection Priority: Primary Status: Acute (2) CAD (coronary artery disease) Priority: Secondary Status: Chronic Qualifiers: Coronary Disease-Associated Artery/Lesion type: [place] artery [place] vs. transplanted heart: [place] heart Associated angina: without angina Qualified Code(s): I25.10 - Atherosclerotic heart disease of [place] coronary artery without angina pectoris (3) Chronic kidney disease (CKD), stage III (moderate) Priority: Secondary Status: Chronic (4) HTN (hypertension) Priority: Secondary Status: Chronic Qualifiers: Hypertension type: essential hypertension Qualified Code(s): I10 - Essential (primary) hypertension (5) Pacemaker Priority: Secondary Status: Chronic (6) DMII (diabetes mellitus, type 2) Priority: Secondary Status: Chronic Qualifiers: Diabetes mellitus complication status: with unspecified complications Diabetes mellitus care home insulin use: unspecified care home insulin use status Qualified Code(s): E11.8 - Type 2 diabetes mellitus with unspecified complications (7) Acute blood loss anemia Priority: Primary Status: Acute - Discharge Medications Prescriptions: CeFAZolin [Ancef] 2,000 mg IVPB Q8H 42 Days Oxycodone HCl [Oxaydo] 5 mg PO Q6H PRN #30 tablet.orl PRN Reason: Pain Home Medications: Albuterol Sulfate [Proventil Hfa] 2 puff IH Q4H PRN 03/29/16 [History] Amlodipine [Norvasc] 5 mg PO DAILY 03/29/16 [History] Atorvastatin [Lipitor] 40 mg PO HS 03/29/16 [History] Budesonide/Formoterol 80/4.5 [Symbicort 80/4.5] 2 puff IH BIDR PRN 03/29/16 [ History] GlipiZIDE [Glucotrol] 5 mg PO DAILY 03/29/16 [History] Hydralazine HCl 50 mg PO BID 03/29/16 [History] Insulin Glargine,Hum.rec.anlog [Lantus Solostar] 22 unit SQ HS 03/29/16 [History ] Losartan Potassium [Cozaar] 100 mg PO DAILY 03/29/16 [History] Tramadol HCl [Ultram] 50 mg PO QID PRN 03/29/16 [History] Hydroxyzine HCl 25 mg PO Q8H PRN 05/11/16 [History] Meclizine HCl [Verticalm] 25 mg PO DAILY PRN 05/11/16 [History] Tiotropium [Spiriva] 1 cap IH DAILY 05/17/16 [History] Cholecalciferol (Vitamin D3) [Vitamin D] 2,000 unit PO DAILY 05/18/16 [History] Desoximetasone [Topicort] 1 appl TP BID 05/18/16 [History] Diclofenac Sodium [Voltaren] 1 appl TP TID 05/18/16 [History] CeFAZolin [Ancef] 2,000 mg IVPB Q8H 42 Days 05/21/16 [Rx] Oxycodone HCl [Oxaydo] 5 mg PO Q6H PRN #30 tablet.orl 05/21/16 [Rx] Allergies/Adverse Reactions: Allergies vitamin E (d-alpha tocopherol) Adverse Reaction (Verified 05/11/16 14:32) Hives Labs on day of discharge: Labs from last 24 hours 05/20/16 05/20/16 05/20/16 20:48 16:16 11:45 POC Glucose 304 H 178 H 116 H Blood Type Antibody Screen Crossmatch 05/20/16 05/20/16 08:21 07:07 POC Glucose 163 H Blood Type A POSITIVE Antibody Screen NEGATIVE Crossmatch See Detail Preliminary micro results at discharge 05/19/16 21:22 Wound Culture - Preliminary Right Knee Gram Positive Cocci 05/18/16 16:32 Blood Culture - Preliminary Peripheral Venipuncture No growth. 05/18/16 16:32 Blood Culture - Preliminary Peripheral Venipuncture No growth. - Impressions ITS Impressions Knee X-Ray 05/17/16 17:57 IMPRESSION: 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 D/ / Quintin Lock MD / Quintin Lock MD Interpreting Provider: Quintin Lock MD Knee X-Ray 05/19/16 13:51 IMPRESSION: Status post revision right total knee arthroplasty. No radiographic evidence of acute complication. D/ / 05/19/2016 16:17:05 Di Martinez MD / kacie Interpreting Provider: Di Martinez MD Date of admission: 05/17/16 17:56 Primary care physician: Edwin Carias Consults: 05/17/16 18:24 Consult to Cardiology [CONS] Routine Comment: Consulting Provider: Cardiology Evelyn Reason for Consult: Pacemaker placed 2015 Call Completed: Yes 05/19/16 16:55 Consult to Occupational Therapy [CONS] Routine Comment: Evaluate, develop and implement POC Consult to Orthopedic Navigator [CONS] [CONS] Routine Consult to Physical Therapy [CONS] Routine Comment: No knee motion Consult to Leaf Stamper [CONS] Routine Reason for SW Consult: post op joint replacement RT Post Op Consult [CONS] Routine - Patient Status Disposition: Transfer Inpatient Rehab Fac Condition: Fair Functional capacity at discharge: uses cane/walker Overall status at discharge: patient is progressing back to baseline - Discharge Instructions Follow Up With: Eber Manuel MD [Partnered Physician] - 06/16/16 5:10 pm Lilliam Li PAC [Physician Public Address Systems Mechanic] - 05/28/16 11:45 am New Pena DO [Partnered Physician] - 10/01/16 1:45 pm Roberto Wharton MD [Primary Care Provider] - 08/02/16 10:30 am Sae Alarcon MD [Partnered Physician] - 05/28/16 1:45 pm - Hospital Course Hospital course: Ms. Sheehan is a 80 year old female status post 1 stage revision for infected total knee patient with acute blood loss anemia received 2 units of blood. Discharge stable condition on IV antibiotics for 6 weeks. - Time Spent with Patient Total time spent providing and/or coordinating discharge services: - VTE Documentation of Mechanical Device: Venous foot pump, device
--- NOTE | 2016-05-21 06:41 | Orthopedics Progress Note ---
Date of Encounter: 05/21/16 Time of Encounter: 06:41 - Assessment and Plan (1) Joint infection Current Visit: Yes Status: Acute (2) CAD (coronary artery disease) Current Visit: Yes Status: Chronic Qualifiers: Coronary Disease-Associated Artery/Lesion type: [place] artery [place] vs. transplanted heart: [place] heart Associated angina: without angina Qualified Code(s): I25.10 - Atherosclerotic heart disease of [place] coronary artery without angina pectoris (3) Chronic kidney disease (CKD), stage III (moderate) Current Visit: Yes Status: Chronic (4) HTN (hypertension) Current Visit: Yes Status: Chronic Qualifiers: Hypertension type: essential hypertension Qualified Code(s): I10 - Essential (primary) hypertension (5) Pacemaker Current Visit: Yes Status: Chronic (6) DMII (diabetes mellitus, type 2) Current Visit: No Status: Chronic Qualifiers: Diabetes mellitus complication status: with unspecified complications Diabetes mellitus termite technician insulin use: unspecified termite technician insulin use status Qualified Code(s): E11.8 - Type 2 diabetes mellitus with unspecified complications (7) Acute blood loss anemia Current Visit: No Status: Acute Subjective Interval history: Patient was seen this morning doing well without complaints. Afebrile vital signs stable. Operative extremity: Neurovascularly intact Incision clean dry and intact Calves nontender Assessment and plan: Continue with postoperative care disCharge today Objective Vital signs: Vital Signs Temp Pulse Resp BP Pulse Ox 05/21/16 06:20 98.6 F 80 16 174/66 93 L 05/21/16 04:00 99.0 F 104 17 111/57 95 05/21/16 00:00 98.8 F 82 17 185/64 96 05/20/16 20:00 99.3 F 77 18 173/82 96 05/20/16 17:14 99 F 70 16 141/72 97 05/20/16 14:52 99.3 F 69 16 122/72 05/20/16 14:43 98.7 F 64 16 124/58 95 05/20/16 14:39 99.1 F 69 14 137/51 95 05/20/16 14:31 99.1 F 69 14 137/51 95 05/20/16 11:42 14 97 05/20/16 11:34 98.6 F 63 18 154/63 97 05/20/16 11:19 98.7 F 67 18 149/62 98 05/20/16 08:36 96 Intake and Output 05/20/16 05/20/16 05/21/16 15:59 23:59 07:59 Intake Total 400 / 400 800 / 800 350 / 350 Output Total 200 / 200 300 / 300 300 / 300 Balance 200 / 200 500 / 500 50 / 50 Intake: IV Fluids 100 / 100 100 / 100 Ancef 2,000 MG In 100 / 100 100 / 100 Dextrose 5% 100 ML @ 200 mls/hr IVPB Q8HR [facility] Rx#: [id number] Oral 400 / 400 350 / 350 Blood Product 300 / 300 300 / 300 Rbcs Leuko Poor As-1 300 / 300 Unit [id number] Rbcs Leuko Poor As-1 0 / 0 300 / 300 Unit [id number] Output: Urine 200 / 200 300 / 300 300 / 300 Other: # Urine Diapers 1 Blood Glucose* 116 179 - Labs CBC & BMP: 05/20/16 06:15 05/19/16 11:26 Labs: Abnormal lab results Hgb 8.2 g/dL (11.5-15.4) L 05/20/16 06:15 Hct 25.9 % (35.3-44.9) L 05/20/16 06:15 MCV 81.8 fL (83.0-100.0) L 05/19/16 11:26 MCH 26.0 pg (28.0-33.3) L 05/19/16 11:26 RDW 15.9 % (11.5-14.5) H 05/19/16 11:26 MPV 9.0 fL (9.4-12.4) L 05/19/16 11:26 ESR 88 mm/hr (0-15) H 05/17/16 18:23 PT 13.8 Seconds (9.4-12.1) H 05/17/16 18:23 APTT 36.9 Seconds (26.0-36.0) H 05/17/16 18:23 BUN 28 mg/dL (7-20) H 05/19/16 11:26 Est GFR (Non-Af Amer) 55 (> 60) L 05/19/16 11:26 BUN/Creatinine Ratio 29 (6-26) H 05/19/16 11:26 POC Glucose 304 (58-89) H 05/20/16 20:48 Creatine Kinase 20 Units/L (29-168) L 05/19/16 11:26 C-Reactive Protein 25 mg/L (Less than 5) H 05/17/16 18:23 Albumin 3.1 g/dL (3.5-5.0) L 05/17/16 18:23 Globulin 4.2 g/dL (2.4-3.5) H 05/17/16 18:23 Albumin/Globulin Ratio 0.7 (1.1-2.2) L 05/17/16 18:23 Urine Glucose (UA) 100 mg/dL (Normal) H 05/20/16 02:18 Vancomycin Peak < 0.4 mcg/mL (20-40) L 05/17/16 18:23 Vancomycin Trough < 0.4 mcg/mL (10-20) L 05/17/16 18:23 - VTE Documentation of Mechanical Device: Venous foot pump, device Consult Discharge Plan - Plan Referrals: Eber Manuel MD [Partnered Physician] - 06/16/16 5:10 pm Lilliam Li PAC [Physician Supervisor Hydrochloric Area] - 05/28/16 11:45 am New Pena DO [Partnered Physician] - 10/01/16 1:45 pm Roberto Wharton MD [Primary Care Provider] - 08/02/16 10:30 am Sae Alarcon MD [Partnered Physician] - 05/28/16 1:45 pm Prescriptions: CeFAZolin [Ancef] 2,000 mg IVPB Q8H 42 Days Oxycodone HCl [Oxaydo] 5 mg PO Q6H PRN #30 tablet.orl PRN Reason: Pain
[2016-05-21 07:28] LABS: Hemoglobin 10.1 g/dL (11.5-15.4)
[2016-05-21] MEDS: hydrALAZINE 25 MG TABLET PO SCH ×2 (09:36→19:39)
[2016-05-21] MEDS: amLODIPine 5 MG TABLET PO SCH ×2 (09:38→09:54)
[2016-05-21] MEDS: Ascorbic Acid 500 MG TABLET PO SCH ×2 (09:38→19:40)
[2016-05-21] MEDS: *HR* GlipiZIDE 5 MG TABLET PO SCH (09:38)
[2016-05-21] MEDS: Zinc Sulfate 220 MG CAPSULE PO SCH ×2 (09:38→19:39)
[2016-05-21] MEDS: Multivit/Ca/Min/Fe/FA 1 TAB TABLET PO SCH (09:38)
[2016-05-21] MEDS: Tiotropium 18 MCG inhalation IH SCH (10:26)
[2016-05-21] MEDS: Insulin DETEMIR 100 UNIT/ML X5UNITS SQ SCH (19:40)
[2016-05-22] MEDS: ceFAZolin 2,000 MG in D5% in Water 100 ML IVPB SCH ×2 (05:19→16:24)
--- NOTE | 2016-05-22 06:36 | Orthopedics Progress Note ---
Date of Encounter: 05/22/16 Time of Encounter: 06:34 - Assessment and Plan (1) Joint infection Current Visit: Yes Status: Acute (2) CAD (coronary artery disease) Current Visit: Yes Status: Chronic Qualifiers: Coronary Disease-Associated Artery/Lesion type: [place] artery [place] vs. transplanted heart: [place] heart Associated angina: without angina Qualified Code(s): I25.10 - Atherosclerotic heart disease of [place] coronary artery without angina pectoris (3) Chronic kidney disease (CKD), stage III (moderate) Current Visit: Yes Status: Chronic (4) HTN (hypertension) Current Visit: Yes Status: Chronic Qualifiers: Hypertension type: essential hypertension Qualified Code(s): I10 - Essential (primary) hypertension (5) Pacemaker Current Visit: Yes Status: Chronic (6) DMII (diabetes mellitus, type 2) Current Visit: No Status: Chronic Qualifiers: Diabetes mellitus complication status: with unspecified complications Diabetes mellitus director long term care insulin use: unspecified director long term care insulin use status Qualified Code(s): E11.8 - Type 2 diabetes mellitus with unspecified complications (7) Acute blood loss anemia Current Visit: No Status: Acute Subjective Interval history: Patient was seen this morning doing well without complaints. Afebrile vital signs stable. Operative extremity: Neurovascularly intact Incision clean dry and intact Calves nontender Assessment and plan: Continue with postoperative care Hematocrit 31 yesterday, cultures show gram-positive cocci most likely staph aureus would be consistent with preop cultures will continue on IV antibiotics for 6 weeks. Discharge held secondary to insurance patient is 100% stable and an attempt will be made to discharge again today. Objective Vital signs: Vital Signs Temp Pulse Resp BP Pulse Ox 05/22/16 06:28 98.7 F 70 20 153/73 96 05/22/16 04:32 98.3 F 73 17 132/65 95 05/22/16 00:14 99.4 F 75 16 139/56 96 05/21/16 19:36 98.8 F 77 17 147/70 95 05/21/16 15:05 98.6 F 81 16 138/59 97 05/21/16 10:26 16 98 Intake and Output 05/21/16 05/21/16 05/22/16 15:59 23:59 07:59 Intake Total 100 / 100 100 / 100 100 / 100 Output Total 150 / 150 Balance 100 / 100 100 / 100 -50 / -50 Intake: IV Fluids 100 / 100 100 / 100 100 / 100 Ancef 2,000 MG In 100 / 100 100 / 100 100 / 100 Dextrose 5% 100 ML @ 200 mls/hr IVPB Q12H [facility] Rx#: [id number] Output: Urine 150 / 150 Other: # Voids 1 # Urine Diapers 1 Blood Glucose* 120 173 - Labs CBC & BMP: 05/21/16 07:00 05/19/16 11:26 Labs: Abnormal lab results Hgb 10.1 g/dL (11.5-15.4) L D 05/21/16 07:00 Hct 31.0 % (35.3-44.9) L 05/21/16 07:00 MCV 81.8 fL (83.0-100.0) L 05/19/16 11:26 MCH 26.0 pg (28.0-33.3) L 05/19/16 11:26 RDW 15.9 % (11.5-14.5) H 05/19/16 11:26 MPV 9.0 fL (9.4-12.4) L 05/19/16 11:26 ESR 88 mm/hr (0-15) H 05/17/16 18:23 PT 13.8 Seconds (9.4-12.1) H 05/17/16 18:23 APTT 36.9 Seconds (26.0-36.0) H 05/17/16 18:23 BUN 28 mg/dL (7-20) H 05/19/16 11:26 Est GFR (Non-Af Amer) 55 (> 60) L 05/19/16 11:26 BUN/Creatinine Ratio 29 (6-26) H 05/19/16 11:26 POC Glucose 173 (58-89) H 05/21/16 19:39 Creatine Kinase 20 Units/L (29-168) L 05/19/16 11:26 C-Reactive Protein 25 mg/L (Less than 5) H 05/17/16 18:23 Albumin 3.1 g/dL (3.5-5.0) L 05/17/16 18:23 Globulin 4.2 g/dL (2.4-3.5) H 05/17/16 18:23 Albumin/Globulin Ratio 0.7 (1.1-2.2) L 05/17/16 18:23 Urine Glucose (UA) 100 mg/dL (Normal) H 05/20/16 02:18 Vancomycin Peak < 0.4 mcg/mL (20-40) L 05/17/16 18:23 Vancomycin Trough < 0.4 mcg/mL (10-20) L 05/17/16 18:23 - VTE Documentation of Mechanical Device: Venous foot pump, device Consult Discharge Plan - Plan Referrals: Eber Manuel MD [Partnered Physician] - 06/16/16 5:10 pm Lilliam Li PAC [Physician Box Icer] - 05/28/16 11:45 am New Pena DO [Partnered Physician] - 10/01/16 1:45 pm Roberto Wharton MD [Primary Care Provider] - 08/02/16 10:30 am Sae Alarcon MD [Partnered Physician] - 05/28/16 1:45 pm Prescriptions: CeFAZolin [Ancef] 2,000 mg IVPB Q8H 42 Days Oxycodone HCl [Oxaydo] 5 mg PO Q6H PRN #30 tablet.orl PRN Reason: Pain Tramadol HCl [Ultram] 50 mg PO QID PRN #20 tab PRN Reason: Pain
[2016-05-22] MEDS: amLODIPine 5 MG TABLET PO SCH ×2 (08:33→08:39)
[2016-05-22] MEDS: Multivit/Ca/Min/Fe/FA 1 TAB TABLET PO SCH (08:39)
[2016-05-22] MEDS: Ascorbic Acid 500 MG TABLET PO SCH ×2 (08:39→20:38)
[2016-05-22] MEDS: *HR* GlipiZIDE 5 MG TABLET PO SCH (08:39)
[2016-05-22] MEDS: hydrALAZINE 25 MG TABLET PO SCH ×2 (08:39→20:39)
[2016-05-22] MEDS: Zinc Sulfate 220 MG CAPSULE PO SCH ×2 (08:39→20:38)
[2016-05-22] MEDS: traMADol 50 MG TABLET PO PRN ×2 (08:42→18:20)
[2016-05-22] MEDS: Tiotropium 18 MCG inhalation IH SCH (08:49)
[2016-05-22] MEDS: Insulin DETEMIR 100 UNIT/ML X5UNITS SQ SCH (21:22)
[2016-05-23] MEDS: traMADol 50 MG TABLET PO PRN ×4 (00:24→20:27)
[2016-05-23] MEDS: ceFAZolin 2,000 MG in D5% in Water 100 ML IVPB SCH ×2 (04:51→16:41)
--- NOTE | 2016-05-23 06:38 | Orthopedics Progress Note ---
Date of Encounter: 05/23/16 Time of Encounter: 06:37 - Assessment and Plan (1) Joint infection Current Visit: Yes Status: Acute (2) CAD (coronary artery disease) Current Visit: Yes Status: Chronic Qualifiers: Coronary Disease-Associated Artery/Lesion type: [place] artery [place] vs. transplanted heart: [place] heart Associated angina: without angina Qualified Code(s): I25.10 - Atherosclerotic heart disease of [place] coronary artery without angina pectoris (3) Chronic kidney disease (CKD), stage III (moderate) Current Visit: Yes Status: Chronic (4) HTN (hypertension) Current Visit: Yes Status: Chronic Qualifiers: Hypertension type: essential hypertension Qualified Code(s): I10 - Essential (primary) hypertension (5) Pacemaker Current Visit: Yes Status: Chronic (6) DMII (diabetes mellitus, type 2) Current Visit: No Status: Chronic Qualifiers: Diabetes mellitus complication status: with unspecified complications Diabetes mellitus terminal system operator insulin use: unspecified terminal system operator insulin use status Qualified Code(s): E11.8 - Type 2 diabetes mellitus with unspecified complications (7) Acute blood loss anemia Current Visit: No Status: Acute Subjective Interval history: Patient was seen this morning doing well without complaints. Afebrile vital signs stable. Operative extremity: Neurovascularly intact Incision clean dry and intact Calves nontender Assessment and plan: Continue with postoperative care Culture positive for staph aureus susceptible to cefazolin. sHe is on appropriate antibiotics. Discharge held secondary to insurance patient is 100% stable and an attempt will be made to discharge again today. Objective Vital signs: Vital Signs Temp Pulse Resp BP Pulse Ox 05/23/16 03:19 98.1 F 62 15 146/56 94 L 05/22/16 23:53 98.3 F 71 16 147/62 97 05/22/16 19:07 98.0 F 70 15 133/59 96 05/22/16 16:11 98.4 F 73 16 144/67 96 05/22/16 11:05 98.2 F 77 16 123/68 96 05/22/16 08:53 16 98 Intake and Output 05/22/16 05/22/16 05/23/16 15:59 23:59 07:59 Intake Total 360 / 360 225 / 225 200 / 200 Output Total 350 / 350 Balance 360 / 360 -125 / -125 200 / 200 Intake: IV Fluids 100 / 100 100 / 100 Ancef 2,000 MG In 100 / 100 100 / 100 Dextrose 5% 100 ML @ 200 mls/hr IVPB Q12H [facility] Rx#: [id number] Oral 360 / 360 125 / 125 100 / 100 Output: Urine 350 / 350 Other: Meal Lunch Dinner Percent of Meal Consumed 100% 100% # Urine Diapers 1 Weight 78 kg Blood Glucose* 177 199 Patient Weight 05/23/16 23:59 Weight 78 kg - Labs CBC & BMP: 05/21/16 07:00 05/19/16 11:26 Labs: Abnormal lab results Hgb 10.1 g/dL (11.5-15.4) L D 05/21/16 07:00 Hct 31.0 % (35.3-44.9) L 05/21/16 07:00 MCV 81.8 fL (83.0-100.0) L 05/19/16 11:26 MCH 26.0 pg (28.0-33.3) L 05/19/16 11:26 RDW 15.9 % (11.5-14.5) H 05/19/16 11:26 MPV 9.0 fL (9.4-12.4) L 05/19/16 11:26 ESR 88 mm/hr (0-15) H 05/17/16 18:23 PT 13.8 Seconds (9.4-12.1) H 05/17/16 18:23 APTT 36.9 Seconds (26.0-36.0) H 05/17/16 18:23 BUN 28 mg/dL (7-20) H 05/19/16 11:26 Est GFR (Non-Af Amer) 55 (> 60) L 05/19/16 11:26 BUN/Creatinine Ratio 29 (6-26) H 05/19/16 11:26 POC Glucose 199 (58-89) H 05/22/16 20:12 Creatine Kinase 20 Units/L (29-168) L 05/19/16 11:26 C-Reactive Protein 25 mg/L (Less than 5) H 05/17/16 18:23 Albumin 3.1 g/dL (3.5-5.0) L 05/17/16 18:23 Globulin 4.2 g/dL (2.4-3.5) H 05/17/16 18:23 Albumin/Globulin Ratio 0.7 (1.1-2.2) L 05/17/16 18:23 Urine Glucose (UA) 100 mg/dL (Normal) H 05/20/16 02:18 Vancomycin Peak < 0.4 mcg/mL (20-40) L 05/17/16 18:23 Vancomycin Trough < 0.4 mcg/mL (10-20) L 05/17/16 18:23 - VTE Documentation of Mechanical Device: Venous foot pump, device Consult Discharge Plan - Plan Referrals: Eber Manuel MD [Partnered Physician] - 06/16/16 5:10 pm Lilliam Li PAC [Physician Leasing Sales Consultant] - 05/28/16 11:45 am New Pena DO [Partnered Physician] - 10/01/16 1:45 pm Roberto Wharton MD [Primary Care Provider] - 08/02/16 10:30 am Sae Alarcon MD [Partnered Physician] - 05/28/16 1:45 pm Prescriptions: CeFAZolin [Ancef] 2,000 mg IVPB Q8H 42 Days Oxycodone HCl [Oxaydo] 5 mg PO Q6H PRN #30 tablet.orl PRN Reason: Pain Tramadol HCl [Ultram] 50 mg PO QID PRN #20 tab PRN Reason: Pain
[2016-05-23] MEDS: Tiotropium 18 MCG inhalation IH SCH ×2 (08:25→11:18)
[2016-05-23] MEDS: Ascorbic Acid 500 MG TABLET PO SCH ×2 (08:42→20:30)
[2016-05-23] MEDS: Multivit/Ca/Min/Fe/FA 1 TAB TABLET PO SCH (08:42)
[2016-05-23] MEDS: *HR* GlipiZIDE 5 MG TABLET PO SCH (08:43)
[2016-05-23] MEDS: amLODIPine 5 MG TABLET PO SCH ×2 (08:43→08:45)
[2016-05-23] MEDS: hydrALAZINE 25 MG TABLET PO SCH ×2 (08:44→20:27)
[2016-05-23] MEDS: Zinc Sulfate 220 MG CAPSULE PO SCH ×2 (08:44→20:27)
[2016-05-23] MEDS: Insulin DETEMIR 100 UNIT/ML X5UNITS SQ SCH (20:41)
[2016-05-24] MEDS: ceFAZolin 2,000 MG in D5% in Water 100 ML IVPB SCH ×2 (05:02→16:02)
[2016-05-24] MEDS: traMADol 50 MG TABLET PO PRN ×3 (05:12→21:00)
--- NOTE | 2016-05-24 06:32 | Orthopedics Progress Note ---
Date of Encounter: 05/24/16 Time of Encounter: 06:32 - Assessment and Plan (1) Joint infection Current Visit: Yes Status: Acute (2) CAD (coronary artery disease) Current Visit: Yes Status: Chronic Qualifiers: Coronary Disease-Associated Artery/Lesion type: [place] artery [place] vs. transplanted heart: [place] heart Associated angina: without angina Qualified Code(s): I25.10 - Atherosclerotic heart disease of [place] coronary artery without angina pectoris (3) Chronic kidney disease (CKD), stage III (moderate) Current Visit: Yes Status: Chronic (4) HTN (hypertension) Current Visit: Yes Status: Chronic Qualifiers: Hypertension type: essential hypertension Qualified Code(s): I10 - Essential (primary) hypertension (5) Pacemaker Current Visit: Yes Status: Chronic (6) DMII (diabetes mellitus, type 2) Current Visit: No Status: Chronic Qualifiers: Diabetes mellitus complication status: with unspecified complications Diabetes mellitus ferry terminal agent insulin use: unspecified retirement insulin use status Qualified Code(s): E11.8 - Type 2 diabetes mellitus with unspecified complications (7) Acute blood loss anemia Current Visit: No Status: Acute Subjective Interval history: Patient was seen this morning doing well without complaints. Afebrile vital signs stable. Operative extremity: Neurovascularly intact Incision clean dry and intact Calves nontender Assessment and plan: Continue with postoperative care Discharge held secondary to insurance patient is 100% stable and an attempt will be made to discharge again today. Objective Vital signs: Vital Signs Temp Pulse Resp BP Pulse Ox 05/23/16 19:00 97.7 F 71 18 120/54 94 L 05/23/16 15:04 97.6 F 72 16 143/65 96 05/23/16 11:20 16 98 05/23/16 10:51 97.5 F L 77 16 146/65 94 L 05/23/16 07:03 98.0 F 64 17 154/54 94 L Intake and Output 05/23/16 05/23/16 05/24/16 15:59 23:59 07:59 Intake Total 240 / 240 620 / 620 370 / 370 Balance 240 / 240 620 / 620 370 / 370 Intake: IV Fluids 100 / 100 100 / 100 Ancef 2,000 MG In 100 / 100 100 / 100 Dextrose 5% 100 ML @ 200 mls/hr IVPB Q12H [facility] Rx#: [id number] Oral 240 / 240 520 / 520 270 / 270 Other: Meal Lunch Percent of Meal Consumed 100% # Voids 1 # Urine Diapers 1 2 Blood Glucose* 137 177 - Labs CBC & BMP: 05/21/16 07:00 05/19/16 11:26 Labs: Abnormal lab results Hgb 10.1 g/dL (11.5-15.4) L D 05/21/16 07:00 Hct 31.0 % (35.3-44.9) L 05/21/16 07:00 MCV 81.8 fL (83.0-100.0) L 05/19/16 11:26 MCH 26.0 pg (28.0-33.3) L 05/19/16 11:26 RDW 15.9 % (11.5-14.5) H 05/19/16 11:26 MPV 9.0 fL (9.4-12.4) L 05/19/16 11:26 ESR 88 mm/hr (0-15) H 05/17/16 18:23 PT 13.8 Seconds (9.4-12.1) H 05/17/16 18:23 APTT 36.9 Seconds (26.0-36.0) H 05/17/16 18:23 BUN 28 mg/dL (7-20) H 05/19/16 11:26 Est GFR (Non-Af Amer) 55 (> 60) L 05/19/16 11:26 BUN/Creatinine Ratio 29 (6-26) H 05/19/16 11:26 POC Glucose 177 (58-89) H 05/23/16 19:02 Creatine Kinase 20 Units/L (29-168) L 05/19/16 11:26 C-Reactive Protein 25 mg/L (Less than 5) H 05/17/16 18:23 Albumin 3.1 g/dL (3.5-5.0) L 05/17/16 18:23 Globulin 4.2 g/dL (2.4-3.5) H 05/17/16 18:23 Albumin/Globulin Ratio 0.7 (1.1-2.2) L 05/17/16 18:23 Urine Glucose (UA) 100 mg/dL (Normal) H 05/20/16 02:18 Vancomycin Peak < 0.4 mcg/mL (20-40) L 05/17/16 18:23 Vancomycin Trough < 0.4 mcg/mL (10-20) L 05/17/16 18:23 - VTE Documentation of Mechanical Device: Venous foot pump, device Consult Discharge Plan - Plan Referrals: Eber Manuel MD [Partnered Physician] - 06/16/16 5:10 pm Lilliam Li, PAC [Physician Casing Mixer] - 05/28/16 11:45 am New Pena DO [Partnered Physician] - 10/01/16 1:45 pm Roberto Wharton MD [Primary Care Provider] - 08/02/16 10:30 am Sae Alarcon MD [Partnered Physician] - 05/28/16 1:45 pm Prescriptions: CeFAZolin [Ancef] 2,000 mg IVPB Q8H 42 Days Oxycodone HCl [Oxaydo] 5 mg PO Q6H PRN #30 tablet.orl PRN Reason: Pain Tramadol HCl [Ultram] 50 mg PO QID PRN #20 tab PRN Reason: Pain
[2016-05-24] MEDS: *HR* GlipiZIDE 5 MG TABLET PO SCH (09:09)
[2016-05-24] MEDS: Zinc Sulfate 220 MG CAPSULE PO SCH ×2 (09:15→20:58)
[2016-05-24] MEDS: amLODIPine 5 MG TABLET PO SCH ×2 (09:16→09:17)
[2016-05-24] MEDS: Ascorbic Acid 500 MG TABLET PO SCH ×3 (09:17→22:00)
[2016-05-24] MEDS: Multivit/Ca/Min/Fe/FA 1 TAB TABLET PO SCH (09:17)
[2016-05-24] MEDS: hydrALAZINE 25 MG TABLET PO SCH ×2 (10:37→20:58)
[2016-05-24] MEDS: Tiotropium 18 MCG inhalation IH SCH (11:23)
[2016-05-24] MEDS: Insulin DETEMIR 100 UNIT/ML X5UNITS SQ SCH (21:15)
[2016-05-25] MEDS: ceFAZolin 2,000 MG in D5% in Water 100 ML IVPB SCH (04:35)
[2016-05-25] MEDS: Tiotropium 18 MCG inhalation IH SCH (08:03)
[2016-05-25] MEDS: *HR* GlipiZIDE 5 MG TABLET PO SCH (08:24)
[2016-05-25] MEDS: hydrALAZINE 25 MG TABLET PO SCH (08:24)
[2016-05-25] MEDS: traMADol 50 MG TABLET PO PRN (08:24)
[2016-05-25] MEDS: Multivit/Ca/Min/Fe/FA 1 TAB TABLET PO SCH (08:24)
[2016-05-25] MEDS: Zinc Sulfate 220 MG CAPSULE PO SCH (08:24)
[2016-05-25] MEDS: Ascorbic Acid 500 MG TABLET PO SCH (08:25)
[2016-05-25] MEDS: amLODIPine 5 MG TABLET PO SCH (08:25)
[2016-05-25 11:23] VITALS: BP 148/67
[2016-05-25] MEDS ORDERED: ceFAZolin 2,000 MG in D5% in Water 100 ML IVPB SCH (16:00)
== END 2016-05-25 14:30 | DRG 467 ==
LOC: 3NENU → 3BNU 05-22 15:52
PROVIDERS: ADMIT Orthopaedic Surgery; ATTEND Orthopaedic Surgery